=== PATIENT | male | born 1950 | race Caucasian/White ===

== ENCOUNTER 2016-04-16 17:45 | Emergency (ER) | payer OTHER ==
[~2016-04-16] VITALS: Ht 170.2 cm; Wt 89.4 kg
[~2016-04-16 17:45] MED LIST: ALBUTEROL0.09 MG/A1 INH; AZITHROMYCIN250 MG PO; BYSTOLIC10 MG PO; CRESTOR 10MG10 MG PO; LISINOPRIL40 MG PO; PREDNISONE50 MG PO; ZETIA10 MG PO
--- NOTE | 2016-04-16 18:58 | ED GI/GU/ABDOMINAL COMPLAINT ---
See Addendum History of Present Illness General Chief Complaint: General Adult Stated Complaint: FLU S/S X 1MONTH Source: patient, old records Exam Limitations: no limitations Vital Signs & Intake/Output Vital Signs & Intake/Output Vital Signs Date Time Temp Pulse Resp B/P Pulse O2 O2 Flow FiO2 Ox Delivery Rate 04/17 0852 98.6 82 20 181/90 99 / 0640 96.5 68 18 176/95 97 Room Air 03/ 0523 97.6 67 20 171/83 97 Room Air 03/ 0053 97.7 82 18 145/66 98 03/ 2351 98.3 64 18 120/111 99 Room Air / 2350 97.3 64 18 120/111 / 2249 70 18 172/88 98 Room Air / 2036 97.3 67 20 187/108 /06 2014 67 187/108 98 03/06 1940 Room Air / 1817 97.3 83 20 168/102 98 Room Air ED Intake and Output 04/17 0000 04/16 1200 Intake Total Output Total Balance Patient 197 lb Weight Triage Note: RECEIVED 66 YO MALE C/O MID ABDOMINAL PAIN X ONE MONTH WITH NAUSEA, VOMITING AND DIARRHEA. PT UNABLE TO TOLERATE ANY PO. PT WAS SEEN AT [facility] ED ONE WEEK AGO. Triage Nurses Notes Reviewed? yes Onset: Gradual ( ) Duration: week(s): (4), intermittent, waxing and waning Timing: recent history Quality/Severity: aching, cramping bloating Severity Numbers: 6 Location: periumbilical Radiation: no radiation Activities at Onset: none Prior Abdominal Problems: none No Modifying Factors: none Associated Symptoms: nausea HPI: 66-year-old male with history of hypertension high cholesterol presents complaining of mid abdominal pain sudden in onset and waxing and waning and intermittent in nature but he's had for the past 1 month associated with loose frequent stools and nausea. He denies any vomiting black or bloody stools. No history of similar symptoms in the past no sick contacts. Patient states he was seen at [facility] for the symptoms one week ago with no known cause identified. He denies sick history of abdominal surgeries in the past, no chest pain no shortness of breath no urinary symptoms. Has not attempted taking any medications for his symptoms. He is an active smoker and states that he did drink previously 2-3 beers a day prior to the symptoms which she states she has attempted cutting back on. His last drink was 3 days ago which time he had 3 beers. Patient states that he previously was on oxycodone for chronic pain however he states he was tapered off of this 3 months ago and has not been on any narcotics since. he Denies any other drug use no back pain the pain in his abdomen is described as cramping and bloating nonradiating. There are no modifying factors or associated symptoms otherwise. No recent antibiotic use (CRAIG MARROQUIN,GENIE) Allergies Coded Allergies: acetaminophen (From PERCOCET) (RASH 04/17/16) oxycodone (From PERCOCET) (RASH 04/17/16) Reconcile Medications Aspirin (Ecotrin*) 81 MG TABLET.DR 1 TAB PO DAILY HEART/BP (Reported) Dicyclomine Hydrochloride (Bentyl) 10 MG CAPSULE 1 CAP PO TID PRN SPASM Dicyclomine Hydrochloride (Bentyl) 10 MG CAPSULE 1 CAP PO TID PRN pain Escitalopram Oxalate 10 MG TABLET 1 TAB PO DAILY MENTAL HEALTH (Reported) Hydromorphone HCl (Dilaudid) 2 MG TABLET 1 TAB PO Q6P PRN PAIN Metoprolol Tartrate 50 MG TABLET 2 TAB PO QAM HEART/BP (Reported) Metoprolol Tartrate (Lopressor) 50 MG TABLET 1 TAB PO QPM HEART/BP (Reported) Nifedipine (Nifedipine ER) 30 MG TABLET.ER 1 TAB PO DAILY BP (Reported) Ondansetron (Zofran Odt) 4 MG TAB.RAPDIS 1 TAB PO Q6 PRN NAUSEA Ondansetron (Zofran Odt) 4 MG TAB.RAPDIS 1 TAB SL TID PRN nausea Rosuvastatin Calcium (Crestor) 40 MG TABLET 1 TAB PO DAILY CHOLESTEROL ( Reported) (JORGE SULLIVAN,ELMER) Past History Travel History Traveled to [place] past 21 day No Medical History Any Pertinent Medical History? 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 No (GENIE ESCOBAR) Review of Systems Review of Systems Constitutional: Reports: no symptoms. All Other Systems: Reviewed and Negative Comments Review of systems: See HPI, All other systems negative. Constitutional, no chills no fever, no malaise no weight loss HEENT: no sore throat no congestion, no ear pain Cardiovascular: No chest pain , no palpitation , Skin, no jaundice no rashes, no change in skin Respiratory: No dyspnea no cough no sputum no hemoptysis GI: No nausea no vomiting, diarrhea, : No dysuria No hematuria, no frequency, Muscle skeletal: No joint pain, no joint swelling, no back pain, no neck pain, Neurologic: No numbnessno headache Psych: No stress Heme/endocrine: No bruising no bleeding Immunology: No lymphadenopathy, (GENIE ESCOBAR) Physical Exam Physical Exam General Appearance: well developed/nourished, alert, awake Gastrointestinal: soft Comments: Well-developed well-nourished person in no acute distress HEENT: Normal EENT exam; PERRL, EOMI. HEAD is atraumatic. moist mucous membranes. Neck: Supple, normal range of motion Back: Nontender, no CVA tenderness. Full range of motion Cardiovascular: Regular rate and rhythms no murmurs rubs Respiratory: No respiratory distress. Patient speaking in full complete sentences. Breath sounds clear to auscultation bilaterally: NO W/R/R Abdomen: Soft, nontender nondistended, no appreciable organomegaly. Normal bowel sounds. No rebound/guarding, No appreciable enlargement of the abdominal aorta, No ascites. Extremity: No edema, full range of motion of extremities Neuro: Alert oriented x3, motor sensory normal, There were no obvious focal neurologic abnormalities. Skin: No appreciable rash on exposed skin, skin is warm and dry. Psych: Mood and affect is normal, memory and judgment is normal. Core Measures ACS in differential dx? No Severe Sepsis Present: No Septic Shock Present: No (GENIE ESCOBAR) Progress Differential Diagnosis: appendicitis, biliary colic, bowel obstruction, colon cancer, cholecystitis, gastritis, hepatitis, hernia, inflamm bowel dis, pancreatitis, peptic ulcer, PUD/GERD, perforated viscous, SBO, maligancy, etoh/ opiate Withdrawal Plan of Care: Orders Procedure Date/time Status Regular Diet 04/17 B Active Continuous Observation Monitor 04/16 2344 Active Add-on Test (ER Only) 04/16 232 Active URINE DRUG SCREEN FOR ER ONLY 04/17 2151 Complete URINALYSIS 04/17 2151 Complete ED CRISIS PSYCH CONSULT 04/16 2149 Active Add-on Test (ER Only) 04/16 1950 Active ETHANOL 04/16 1929 Complete LIPASE 04/16 1905 Complete COMPREHENSIVE METABOLIC PANEL 04/16 1905 Complete CBC WITHOUT DIFFERENTIAL 04/16 1905 Complete AMYLASE 04/16 1905 Complete Current Medications Sig/Harjit Start time Last Medication Dose Stop Time Status Admin Aspirin Buffered 81 MG DAILY 04/17 1000 UNVr (Ecotrin) Escitalopram Oxalate 10 MG DAILY 04/17 1000 UNVr (Lexapro) Metoprolol Tartrate 100 MG QAM 04/17 1000 UNVr (Lopressor) Laboratory Tests 04/16/162155: Urine Opiates Screen 2177.00 H, Methadone Screen 47, Barbiturate Screen < 60, Ur Phencyclidine Scrn < 6.00, Amphetamines Screen < 100, U Benzodiazepines Scrn 650 H, Urine Cocaine Screen < 50, Urine Cannabis Screen < 5.00, Urine Color YEL , Urine Clarity CLEAR, Urine pH 6.0, Ur Specific [place] <= 1.005, Urine Protein NEG, Urine Ketones NEG, Urine Nitrite NEG, Urine Bilirubin NEG, Urine Urobilinogen 0.2, Ur Leukocyte Esterase NEG, Ur Microscopic EXAM NOT REQUIRED, Urine Hemoglobin NEG, Urine Glucose NEG 04/16/161929: Anion Gap 13, Estimated GFR > 60, BUN/Creatinine Ratio 8.6, Glucose 104 H, Calcium 10.0, Total Bilirubin 0.8, AST 30, ALT 47, Alkaline Phosphatase 118, Total Protein 7.2, Albumin 4.2, Globulin 3.0, Albumin/Globulin Ratio 1.4, Amylase 32, Lipase 149, CBC w Diff NO MAN DIFF REQ, RBC 5.10, MCV 83.6, MCH 28.1 , RDW 14.8 H, MPV 9.4, Gran % 70.9, Lymphocytes % 17.7 L, Monocytes % 9.2, Eosinophils % 2.0, Basophils % 0.2, Absolute Granulocytes 6.9 H, Absolute Lymphocytes 1.7, Absolute Monocytes 0.9 H, Absolute Eosinophils 0.2, Absolute Basophils 0, PUBS MCHC 33.7, Serum Alcohol < 10.0 Labs ordered old records reviewed patient medicated with IV fluids Zofran 4 morphine for CAT scan ordered as discussed with Dr. Gillespie 04/16/2016 8:31:04 PM discussed with patient at length all of his lab results, pending CAT scan he reports pain is still present oral 30 IV fluids ordered Case discussed with and signed out to LOPEZ RAMSEY PENDING CT (EGNIE ESCOBAR) 214: sign out received by Genie Quiñones PA-C. discussed results of labs and CT scan with patient. Patient complaining of mid abdominal pain and 4 episodes of diarrhea daily for 1 month. Reports that he drinks beer almost daily, last drink several days ago, never had severe withdrawal from alcohol, even when hospitalized for several days for other conditions. Increasing depression due to his chronic pain, and symptoms. At times thoughts of not wanting to live due to his chronic pain and the symptoms that he has been feeling for the past month. No suicidal ideation currently. Offerred patient emergency department crisis consultation. Patient agreeable to being evaluated by graduate internship. 04/16/16 2300: Signed out to Dr Gillespie. (OLINDA TABARES) 7:10 AM Patient signed out to me by Dr. Gillespie, pending crisis disposition. 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 04/17/2016 9:11:[address] Betancourt was contacted by Hannah from our case management department. He will help the patient follow-up with pain management. Patient also given a list of outpatient services to follow up with. Currently not suicidal. Patient agrees with the plan for discharge. (JORGE SULLIVAN,ELMER) Diagnostic Imaging: Viewed by Me: CT Scan. Discussed w/RAD: CT Scan. Initial ED EKG: none Hand-Off Endorsed To: OLINDA TABARES Endorsed Time: 2100 Pending: CT (GENIE ESCOBAR) Diagnostic Imaging: Viewed by Me: CT Scan. Discussed w/RAD: CT Scan. Radiology Impression: PATIENT: KAYLENE WILCOX PRESENT AGE: 66 PATIENT ACCOUNT NO: [id number] : 51 LOCATION: [facility] ORDERING PHYSICIAN: GENIE MARROQUIN SERVICE DATE: 04/16/16 EXAM TYPE: CAT - CT ABD & PELVIS W IV CONTRAST EXAMINATION: CT ABDOMEN AND PELVIS WITH CONTRAST CLINICAL INFORMATION: Diarrhea. Mid abdominal pain. COMPARISON: None. TECHNIQUE: Multidetector volumetric imaging was performed of the abdomen and pelvis before and after the IV administration of 94 mL of Optiray 320 intravenous contrast. Sagittal and coronal reformatted images were obtained on the technologist's workstation. DLP: 546 mGy-cm FINDINGS: LUNG BASES: The visualized lung bases are unremarkable. LIVER, GALLBLADDER, AND BILIARY TREE: The liver is normal in size, shape, and attenuation. No focal hepatic lesion or biliary ductal dilatation is present. The gallbladder is unremarkable with no evidence of radiopaque gallstones, gallbladder wall thickening, or obvious pericholecystic inflammatory changes. PANCREAS: Unremarkable. SPLEEN: Unremarkable. ADRENAL GLANDS: Unremarkable. KIDNEYS AND URETERS: Evaluation of the bilateral kidneys and renal collecting systems is notable for multiple bilateral simple renal cortical cysts , visualized measuring up to 4.5 cm along the midpole of the right kidney. There are several small simple renal cortical cysts along the lateral cortex of the upper, mid and lower poles of the left kidney. There is nonspecific mild left- sided perinephric stranding. No renal or ureteral stones are identified and there is no hydroureteronephrosis of either kidney or renal collecting system. BLADDER: Unremarkable. GASTROINTESTINAL TRACT: Evaluation of the gastrointestinal system is notable for mild rectal wall thickening. This finding is indeterminate and may be secondary to underlying colonic distention although a superimposed mild infectious or inflammatory colitis or perhaps malignancy cannot be entirely excluded abdominal and pelvic bowel loops are normal in caliber, without findings indicative of obstruction or ileus. Nonvisualization of the appendix. No acute inflammatory changes within the right lower quadrant of the abdomen. Scattered colonic diverticulosis, notably involving the sigmoid colon, without secondary signs of acute diverticulitis. ABDOMINAL WALL: Small fat-containing umbilical hernia. LYMPH NODES: No significant abdominal or pelvic adenopathy. Subcentimeter lymph nodes in the region of the patrick hepatis. VASCULAR: Scattered atherosclerosis of the abdominal aorta and its branching vessels, without aneurysmal dilatation. PELVIC VISCERA: Unremarkable. OSSEOUS STRUCTURES: No acute osseous abnormality. Mechanical hardware related to posterior lumbar fusion and decompression from L3 through S1. Moderate to severe multilevel degenerative changes of the lumbar spine. Lumbar spine alignment appears grossly maintained. No visible destructive osseous lesions. IMPRESSION: 1. No acute findings within the abdomen or pelvis to explain patient symptomatology. Scattered colonic diverticulosis, notably involving the descending and rectosigmoid colon, without secondary signs of acute diverticulitis. 2. Of note, there is mild rectal wall thickening. This finding is nonspecific and may be secondary to colonic underdistention although a superimposed infectious, inflammatory or neoplastic process cannot be entirely excluded. Consider correlation with flexible sigmoidoscopy or colonoscopy. DICTATED BY: ANA HENRY MD DATE/TIME DICTATED:04/16/162121 PACKAGING ASSEMBLER:AVINASH DATE/TIME TRANSCRIBED:04/16/162121 CONFIDENTIAL, DO NOT COPY WITHOUT APPROPRIATE AUTHORIZATION. <Electronically signed in Other Vendor System> SIGNED BY: ANA HENRY MD 04/16/162137 (OLINDA TABARES) Hand-Off Endorsed To: ELMER PATEL MD Endorsed Time: 07 Pending: consult (CRISIS) (RIKKI SULLIVAN,SHERINE Martinez) Departure Departure Condition: Stable Additional Instructions: Bentyl as directed, Zofran for nausea bland diet clear liquids, follow-up with her primary care physician tomorrow as well as garnett mechanic Dr. sharpe. return at anytime sooner with any concerns Departure Forms: Customer Survey General Discharge Information (GENIE ESCOBAR) Departure Clinical Impression Primary Impression: Abdominal pain Secondary Impressions: Suicidal ideations (RIKKI SULLIVAN,SHERINE Martinez) Departure Time of Disposition: 911 Disposition: HOME OR SELF CARE Referrals: MINA SULLIVAN,KAVITHA JIMENEZ MD,HARDEEP Crooks (PCP/Family) Prescriptions: Current Visit Scripts Dicyclomine Hydrochloride (Bentyl) 1 CAP PO TID PRN SPASM #20 CAP Ondansetron (Zofran Odt) 1 TAB PO Q6 PRN NAUSEA #10 TAB Ondansetron (Zofran Odt) 1 TAB SL TID PRN nausea #10 TAB Dicyclomine Hydrochloride (Bentyl) 1 CAP PO TID PRN pain #15 CAP PA/WOOD SHINGLE ROOFER Co-Sign Statement Statement: ED Attending supervision documentation- [X] I saw and evaluated the patient. I have also reviewed all the pertinent lab results and diagnostic results. I agree with the findings and the plan of care as documented in the PA's/WOOD SHINGLE ROOFER's documentation. [X] I have reviewed the ED Record and agree with the PA's/WOOD SHINGLE ROOFER's documentation. [] Additions or exceptions (if any) to the PAs/WOOD SHINGLE ROOFER's note and plan are summarized below: [] (JORGE SULLIVAN,ELMER)
[2016-04-16] MEDS ORDERED: METOPROLOL TART50 M1 PO (19:12)
[2016-04-16] MEDS ORDERED: ESCITALOPRAM OX10 MG PO (19:12)
[2016-04-16] MEDS ORDERED: NIFEDIPINE ER30 M1 PO (19:13)
[2016-04-16] MEDS ORDERED: LOPRESSOR50 M1 PO (19:13)
[2016-04-16] MEDS ORDERED: ASPIRIN EC81 M1 PO (19:14)
[2016-04-16] MEDS ORDERED: CRESTOR40 M2 PO (19:14)
[2016-04-16] MEDS ORDERED: ZOFRAN ODT4 M1 SL (19:44)
[2016-04-16] MEDS ORDERED: BENTYL10 M1 PO (19:44)
[2016-04-16 19:45] LABS: ABSOLUTE BASOPHIL COUNT 0 /CUMM (0.0-0.2); ABSOLUTE EOSINOPHIL COUNT 0.2 /CUMM (0.0-0.7); ABSOLUTE GRANULOCYTE CT 6.9 /CUMM (1.4-6.5); ABSOLUTE LYMPH COUNT 1.7 /CUMM (1.2-3.4); ABSOLUTE MONOCYTE COUNT 0.9 /CUMM (0.10-0.60); BASOPHIL % 0.2 % (0.0-2.0); GRANULOCYTE % 70.9 % (42.2-75.2); HEMATOCRIT 42.6 % (42-52); MEAN CORPUSCULAR HGB 28.1 PG (27.0-31.0); MEAN CORPUSCULAR HGB CONC 33.7 G/DL (33.0-37.0); MEAN CORPUSCULAR VOLUME 83.6 FL (80.0-94.0); MEAN PLATELET VOLUME 9.4 FL (7.4-10.4); PLATELET COUNT 260 /CUMM (130-400); RBC DISTRIBUTION WIDTH 14.8 % (11.5-14.5); WHITE BLOOD CELL COUNT 9.8 /CUMM (4.8-10.8)
--- NOTE | 2016-04-16 21:38 | CT SCAN REPORT ---
EXAMINATION: CT ABDOMEN AND PELVIS WITH CONTRAST CLINICAL INFORMATION: Diarrhea. Mid abdominal pain. COMPARISON: None. TECHNIQUE: Multidetector volumetric imaging was performed of the abdomen and pelvis before and after the IV administration of 94 mL of Optiray 320 intravenous contrast. Sagittal and coronal reformatted images were obtained on the technologist's workstation. DLP: 546 mGy-cm FINDINGS: LUNG BASES: The visualized lung bases are unremarkable. LIVER, GALLBLADDER, AND BILIARY TREE: The liver is normal in size, shape, and attenuation. No focal hepatic lesion or biliary ductal dilatation is present. The gallbladder is unremarkable with no evidence of radiopaque gallstones, gallbladder wall thickening, or obvious pericholecystic inflammatory changes. PANCREAS: Unremarkable. SPLEEN: Unremarkable. ADRENAL GLANDS: Unremarkable. KIDNEYS AND URETERS: Evaluation of the bilateral kidneys and renal collecting systems is notable for multiple bilateral simple renal cortical cysts, visualized measuring up to 4.5 cm along the midpole of the right kidney. There are several small simple renal cortical cysts along the lateral cortex of the upper, mid and lower poles of the left kidney. There is nonspecific mild left-sided perinephric stranding. No renal or ureteral stones are identified and there is no hydroureteronephrosis of either kidney or renal collecting system. BLADDER: Unremarkable. GASTROINTESTINAL TRACT: Evaluation of the gastrointestinal system is notable for mild rectal wall thickening. This finding is indeterminate and may be secondary to underlying colonic distention although a superimposed mild infectious or inflammatory colitis or perhaps malignancy cannot be entirely excluded abdominal and pelvic bowel loops are normal in caliber, without findings indicative of obstruction or ileus. Nonvisualization of the appendix. No acute inflammatory changes within the right lower quadrant of the abdomen. Scattered colonic diverticulosis, notably involving the sigmoid colon, without secondary signs of acute diverticulitis. ABDOMINAL WALL: Small fat-containing umbilical hernia. LYMPH NODES: No significant abdominal or pelvic adenopathy. Subcentimeter lymph nodes in the region of the patrick hepatis. VASCULAR: Scattered atherosclerosis of the abdominal aorta and its branching vessels, without aneurysmal dilatation. PELVIC VISCERA: Unremarkable. OSSEOUS STRUCTURES: No acute osseous abnormality. Mechanical hardware related to posterior lumbar fusion and decompression from L3 through S1. Moderate to severe multilevel degenerative changes of the lumbar spine. Lumbar spine alignment appears grossly maintained. No visible destructive osseous lesions. IMPRESSION: 1. No acute findings within the abdomen or pelvis to explain patient symptomatology. Scattered colonic diverticulosis, notably involving the descending and rectosigmoid colon, without secondary signs of acute diverticulitis. 2. Of note, there is mild rectal wall thickening. This finding is nonspecific and may be secondary to colonic underdistention although a superimposed infectious, inflammatory or neoplastic process cannot be entirely excluded. Consider correlation with flexible sigmoidoscopy or colonoscopy.
--- NOTE | 2016-04-17 08:19 | ED PSYCH CRISIS CONSULTATION ---
Crisis Consult Basic Assessment Date of Consult: 04/17/16 Responsible Person/Accompanied By: self Insurance Authorization: Insurance #1: Insurance name: [facility] MEDIC[facility] Phone number: Policy number: [id number] Group number: [id number] Authorization number: ED Provider: Patient's ED Provider: OLINDA TABARES Primary Care Physician: Patient's PCP: HARDEEP JIMENEZ MD PCP's Current Psychiatrist: none Chief Complaint: General Adult Patient's Quote: "I can't live like this." Present Illness: Pt is a 66yo male who presents to the ED requesting help for his chronic pain. Pt was give opiate pain med and benzos while in the ED. UDS is consistent with this. Pt expressed passive SI in the context of his pain to the ED PA, but denied active SI. As a result crisis was asked to evaluate. Pt reports that he has had surgery on 3 disks in his spine and also his knee. Pt explains that he was on methadone by his PCP, but is was discontinued. Pt expresses that he feels he can't live with the severity of his pain and requests help. Pt reports that his pain is so bead that he gets sick to his stomach and can't sleep. Pt denies any hx of depression or mental health tx, but does admits he feels depressed as a result of his pain. Crisis spoke to pt's son Quinten Marks [phone]. pt lives with him. Son verifies that pt has no prior psych hx and has never expressed any SI before. He states that if pt's pain is addressed, then he probably would not feel so hopeless. This clinician Spoke to pt's PCP Dr. Hardeep Jimenez who confirmed that pt has valid pain concerns and should follow-up at a pain management clinic. He informed that he will refer pt to pain management. Pt was informed of this and pt is agreeable to meet with his PCP to be referred for pain management. Pt states he is comfortable with this plan and denies any current SI. Pt agrees to got to the ED if he has any suicidal thoughts, unbearable pain, or feels unsafe. Pt was also offered a referral for out pt tx for depression, but he declined. Pt was provided with a list of resources if he changes his mind. Case reviewed with Dr. Hearn of psychiatry and he approved dispo plan. Patient's Address: [address] [place] [address] Other Phone Number: Who Do You Live With? Son Family/Informants Interviewed: son Allergies - Coded Allergies: acetaminophen (From PERCOCET) (RASH 04/17/16) oxycodone (From PERCOCET) (RASH 04/17/16) Current Medications - Scheduled Medications Aspirin (Ecotrin*) 81 MG TABLET.DR 1 TAB PO DAILY HEART/BP (Reported) Entered as Reported by DONALDO REDDY on 04/16/161913 Escitalopram Oxalate 10 MG TABLET 1 TAB PO DAILY MENTAL HEALTH #30 (Reported) Entered as Reported by DONALDO REDDY on 04/16/161911 Metoprolol Tartrate 50 MG TABLET 2 TAB PO QAM HEART/BP #90 (Reported) Entered as Reported by DONALDO REDDY on 04/16/161911 Metoprolol Tartrate (Lopressor) 50 MG TABLET 1 TAB PO QPM HEART/BP (Reported) Entered as Reported by DONALDO REDDY on 04/16/161912 Nifedipine (Nifedipine ER) 30 MG TABLET.ER 1 TAB PO DAILY BP #30 (Reported) Entered as Reported by DONALDO REDDY on 04/16/161912 Rosuvastatin Calcium (Crestor) 40 MG TABLET 1 TAB PO DAILY CHOLESTEROL #30 ( Reported) Entered as Reported by DONALDO REDDY on 04/16/161913 Scheduled PRN Medications Dicyclomine Hydrochloride (Bentyl) 10 MG CAPSULE 1 CAP PO TID PRN pain #15 CAP Prescribed by GENIE ESCOBAR on 04/16/16 Ondansetron (Zofran Odt) 4 MG TAB.RAPDIS 1 TAB SL TID PRN nausea #10 TAB Prescribed by GENIE ESCOBAR on 04/16/16 Laboratory Results: Laboratory Tests 04/16/16 2156: Urine Opiates Screen 2177.00 H, Methadone Screen 47, Barbiturate Screen < 60, Ur Phencyclidine Scrn < 6.00, Amphetamines Screen < 100, U Benzodiazepines Scrn 650 H, Urine Cocaine Screen < 50, Urine Cannabis Screen < 5.00, Urine Color YEL , Urine Clarity CLEAR, Urine pH 6.0, Ur Specific [place] <= 1.005, Urine Protein NEG, Urine Ketones NEG, Urine Nitrite NEG, Urine Bilirubin NEG, Urine Urobilinogen 0.2, Ur Leukocyte Esterase NEG, Ur Microscopic EXAM NOT REQUIRED, Urine Hemoglobin NEG, Urine Glucose NEG 04/16/16 1930: Anion Gap 13, Estimated GFR > 60, BUN/Creatinine Ratio 8.6, Glucose 104 H, Calcium 10.0, Total Bilirubin 0.8, AST 30, ALT 47, Alkaline Phosphatase 118, Total Protein 7.2, Albumin 4.2, Globulin 3.0, Albumin/Globulin Ratio 1.4, Amylase 32, Lipase 149, CBC w Diff NO MAN DIFF REQ, RBC 5.10, MCV 83.6, MCH 28.1 , RDW 14.8 H, MPV 9.4, Gran % 70.9, Lymphocytes % 17.7 L, Monocytes % 9.2, Eosinophils % 2.0, Basophils % 0.2, Absolute Granulocytes 6.9 H, Absolute Lymphocytes 1.7, Absolute Monocytes 0.9 H, Absolute Eosinophils 0.2, Absolute Basophils 0, PUBS MCHC 33.7, Serum Alcohol < 10.0 Past History Past Medical History Neurological: NONE EENT: NONE Cardiovascular: hypertension, hyperlipidemia Respiratory: NONE Gastrointestinal: NONE Hepatic: NONE Renal: CYST ON KIDNEYS Musculoskeletal: NONE Psychiatric: NONE Endocrine: NONE Blood Disorders: NONE Cancer(s): 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 Past Surgical History Surgical History: none Psychosocial History Strengths/Capabilities: reaches out for help, wants to feel better, supportive son Physical Limitations (Interventions): none reported Psychiatric Treatment History Psych Treatment Psychiatric Treatment No Inpatient Treatment No Outpatient Treatment No Diagnosis by History: none Substance Use/Abuse History Drug Use/Abuse Substances Used/Abused Yes Substance Used/Abused Alcohol First Use 22 Last Used yesterday How much used/taken 3-6 beers How often daily For how long since age 22 Route of use po Substance Abuse Treatment Substance Abuse Treatment Past Substance Abuse [place] No Inpatient Treatment No Outpatient Treatment No Current Mental Status Mental Status Orientation: Person, Place, Situation Affect: Sad Speech: WNL Neuro-vegetative: Appetite Decreased, Sleep Disturbance Appearance Appearance- Dress/Hygiene: unkempt, good eye contact Behaviors Thought Process: WNL Thought Content: WNL Memory: WNL Insight: WNL SI/HI Risk Assessment Past Suicidal Ideation/Attempts No Current Suicidal Ideation/Att No Past Homicidal Ideation/Att: No Current Homicidal Ideation/Attempts No Degree of Intent: None Risk Factors: age (under 24/over 65), chronic/serious med cond., substance abuse , male, limited support Lethality Ratin (mild) PTSD Checklist PTSD Done? 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 Current GAF: 40 Comments: Chronic pain in knee and back, s/p multiple surgeries Departure Disposition Psych Medical Clearance Date: 04/17/16 Medically Cleared at: 0800 Time Started: 0800 Time Ended: 844 Psychiatrist Consulted: Michelet Hearn MD Date Disposition Established: 04/17/16 Time Disposition Established: 844 Plan for Disposition - Modality: Follow-up with PCP for pain mgmt referral Facility: Patient to Arrange Rationale for Disposition: Pt agreeable to follow-up with PCP and pain mgmt, pt denies active SI and agrees to return to ED if suicidal thoughts occur Referrals BARBARA SULLIVAN,HARDEEP Crooks (PCP/Family)
[2016-04-17 08:52] VITALS: BP 181/90
[2016-04-17] MEDS ORDERED: ZOFRAN ODT4 M1 PO (09:45)
[2016-04-17] MEDS ORDERED: BENTYL10 M1 PO (09:45)
[2016-04-17] MEDS ORDERED: DILAUDID2 M1 PO (21:48)
== END 2016-04-17 09:52 ==
LOC: ERH 17:45
PROVIDERS: Physician Assistant Medical
DX: R10.33 Periumbilical pain (principal); R45.851 Suicidal ideations; Z72.0 Tobacco use; I10 Essential (primary) hypertension; Z79.899 Other long term (current) drug therapy
CPT/HCPCS: 74177; 80307; 81003; 96374; 96375; G0463; G0480; J1885; J2405; J2550

== ENCOUNTER 2016-04-17 20:06 | Emergency (ER) | payer OTHER ==
[~2016-04-17] VITALS: Ht 170.2 cm; Wt 90.7 kg
[~2016-04-17 20:06] MED LIST changes: +ASPIRIN EC81 M1 PO; +BENTYL10 M1 PO; +CRESTOR40 M2 PO; +ESCITALOPRAM OX10 MG PO; +LOPRESSOR50 M1 PO; +METOPROLOL TART50 M1 PO; +NIFEDIPINE ER30 M1 PO; +ZOFRAN ODT4 M1 PO; +ZOFRAN ODT4 M1 SL
[2016-04-17 20:10] VITALS: BP 158/98
--- NOTE | 2016-04-17 20:24 | ED GENERAL ADULT ---
History of Present Illness General Chief Complaint: Psychiatric Related Complaint Stated Complaint: PT IS POSTIVE SI Source: patient, old records Exam Limitations: no limitations Vital Signs & Intake/Output Vital Signs & Intake/Output Vital Signs Date Time Temp Pulse Resp B/P Pulse O2 O2 Flow FiO2 Ox Delivery Rate 04/17 2009 97.2 91 20 158/98 98 Room Air Allergies Coded Allergies: acetaminophen (From PERCOCET) (RASH 04/17/16) oxycodone (From PERCOCET) (RASH 04/17/16) Reconcile Medications Aspirin (Ecotrin*) 81 MG TABLET.DR 1 TAB PO DAILY HEART/BP (Reported) Dicyclomine Hydrochloride (Bentyl) 10 MG CAPSULE 1 CAP PO TID PRN SPASM Dicyclomine Hydrochloride (Bentyl) 10 MG CAPSULE 1 CAP PO TID PRN pain Escitalopram Oxalate 10 MG TABLET 1 TAB PO DAILY MENTAL HEALTH (Reported) Hydromorphone HCl (Dilaudid) 2 MG TABLET 1 TAB PO Q6P PRN PAIN Metoprolol Tartrate 50 MG TABLET 2 TAB PO QAM HEART/BP (Reported) Metoprolol Tartrate (Lopressor) 50 MG TABLET 1 TAB PO QPM HEART/BP (Reported) Nifedipine (Nifedipine ER) 30 MG TABLET.ER 1 TAB PO DAILY BP (Reported) Ondansetron (Zofran Odt) 4 MG TAB.RAPDIS 1 TAB PO Q6 PRN NAUSEA Ondansetron (Zofran Odt) 4 MG TAB.RAPDIS 1 TAB SL TID PRN nausea Rosuvastatin Calcium (Crestor) 40 MG TABLET 1 TAB PO DAILY CHOLESTEROL ( Reported) Triage Note: PT TO ED FOR +SI THOUGHTS "I WOULD STAB MYSELF" DNEIES HI. DENIES ETOH, DENIES DRUGS. WAS SEEN HERE YESTERDAY FOR SAME. HAS HAD BODY ACHES FOR MONTHS "I CAN'T TAKE IT ANY MORE" "THEY CAN'T FIND ANYTHING WRONG" Triage Nurses Notes Reviewed? yes HPI: Patient was on chronic pain medication but then his doctor stopped his prescriptions abruptly. This occurred over one month ago. She continues to have diffuse body aches as well as diarrhea. [facility] and then was seen here yesterday. Patient then stated that he wanted to drive his car into a tree so he was held overnight and had a crisis evaluation this morning. Patient was cleared for discharge. Patient called a pain clinic today to get in to be seen but his appointment is not for 3 months. Patient represents to the emergency room saying that he cannot live like this anymore and he wishes he would just . Patient has no plan. Patient denies any homicidal ideations. The body aches are diffuse and there are 10 out of 10. They're achy in origin. The aches are only received was given pain medication in the emergency department yesterday evening. There are no aggravating factors. Past History Travel History Traveled to [place] past 21 day No Medical History Any Pertinent Medical History? 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 No Review of Systems Review of Systems Constitutional: Reports: no symptoms. EENTM: Reports: no symptoms. Respiratory: Reports: no symptoms. Cardiovascular: Reports: no symptoms. GI: Reports: see HPI, diarrhea. Genitourinary: Reports: no symptoms. Musculoskeletal: Reports: see HPI, back pain, muscle pain. Skin: Reports: no symptoms. Neurological/Psychological: Reports: see HPI, depressed. Hematologic/Endocrine: Reports: no symptoms. Immunologic/Allergic: Reports: no symptoms. All Other Systems: Reviewed and Negative Physical Exam Physical Exam General Appearance: well developed/nourished, alert, awake, anxious, moderate distress Head: atraumatic, normal appearance Eyes: Bilateral: PERRL, EOMI. Ears, Nose, Throat: normal pharynx, normal ENT inspection Neck: normal inspection, supple, full range of motion Respiratory: normal breath sounds, chest non-tender, no respiratory distress, lungs clear Cardiovascular: regular rate/rhythm, normal peripheral pulses Gastrointestinal: normal bowel sounds, soft, non-tender Back: normal inspection Extremities: normal inspection, normal capillary refill, normal range of motion, no edema Neurologic/Psych: no motor/sensory deficits, awake, alert, oriented x 3, normal gait, normal mood/affect Skin: intact, normal color, warm/dry Lymphatic: no anterior cervical jakob Core Measures ACS in differential dx? No CVA/TIA Diagnosis: No Severe Sepsis Present: No Septic Shock Present: No Progress Differential Diagnoses I considered the following diagnoses in my evaluation of the patient: [PAIN MED WITHDRAWL, DEPRESSION] Plan of Care: Orders Procedure Date/time Status Continuous Observation Monitor 04/18 2035 Active ED CRISIS PSYCH CONSULT 04/18 2035 Active URINE DRUG SCREEN FOR ER ONLY 04/17 2017 Complete ETHANOL 04/17 2017 Complete COMPREHENSIVE METABOLIC PANEL 04/17 2017 Complete CBC WITHOUT DIFFERENTIAL 04/17 2017 Complete Laboratory Tests 04/17/162022: Urine Opiates Screen 2313.00 H, Methadone Screen 92, Barbiturate Screen < 60, Ur Phencyclidine Scrn < 6.00, Amphetamines Screen 169, U Benzodiazepines Scrn > 800 H, Urine Cocaine Screen < 50, Urine Cannabis Screen < 5.00 04/17/162018: Anion Gap 13, Estimated GFR > 60, BUN/Creatinine Ratio 21.7, Glucose 105 H, Calcium 9.6, Total Bilirubin 0.5, AST 24, ALT 47, Alkaline Phosphatase 117, Total Protein 6.8, Albumin 4.0, Globulin 2.8, Albumin/Globulin Ratio 1.4, CBC w Diff NO MAN DIFF REQ, RBC 4.97, MCV 84.3, MCH 28.3, RDW 15.3 H, MPV 9.2, Gran % 62.4, Lymphocytes % 22.8, Monocytes % 9.8 H, Eosinophils % 3.4, Basophils % 1.6 , Absolute Granulocytes 5.3, Absolute Lymphocytes 1.9, Absolute Monocytes 0.8 H , Absolute Eosinophils 0.3, Absolute Basophils 0.1, PUBS MCHC 33.5, Serum Alcohol < 10.0 Initial ED EKG: none Comments: Patient has been seen and evaluated by hand outside cutter. Patient is stable for discharge. Departure Departure Disposition: HOME OR SELF CARE Condition: Stable Clinical Impression Primary Impression: Medication refill Secondary Impressions: Depression, Narcotic withdrawal Referrals: BARBARA SULLIVAN,HARDEEP Crooks (PCP/Family) Additional Instructions: FOLLOW UP WITH PAIN MANAGEMENT Departure Forms: Customer Survey General Discharge Information Prescriptions: Current Visit Scripts Hydromorphone HCl (Dilaudid) 1 TAB PO Q6P PRN PAIN #30 TAB Critical Care Note Critical Care Note Critical Care Time: non-applicable
[2016-04-17 20:32] LABS: ABSOLUTE BASOPHIL COUNT 0.1 /CUMM (0.0-0.2); ABSOLUTE EOSINOPHIL COUNT 0.3 /CUMM (0.0-0.7); ABSOLUTE GRANULOCYTE CT 5.3 /CUMM (1.4-6.5); ABSOLUTE LYMPH COUNT 1.9 /CUMM (1.2-3.4); ABSOLUTE MONOCYTE COUNT 0.8 /CUMM (0.10-0.60); BASOPHIL % 1.6 % (0.0-2.0); EOSINOPHIL % 3.4 % (0-5); GRANULOCYTE % 62.4 % (42.2-75.2); HEMATOCRIT 41.9 % (42-52); MEAN CORPUSCULAR HGB 28.3 PG (27.0-31.0); MEAN CORPUSCULAR HGB CONC 33.5 G/DL (33.0-37.0); MEAN CORPUSCULAR VOLUME 84.3 FL (80.0-94.0); MEAN PLATELET VOLUME 9.2 FL (7.4-10.4); PLATELET COUNT 246 /CUMM (130-400); RBC DISTRIBUTION WIDTH 15.3 % (11.5-14.5); RED BLOOD CELL CT 4.97 /CUMM (4.70-6.10); WHITE BLOOD CELL COUNT 8.4 /CUMM (4.8-10.8)
--- NOTE | 2016-04-17 21:44 | ED PSYCH CRISIS CONSULTATION ---
Crisis Consult Basic Assessment Date of Consult: 04/17/16 Responsible Person/Accompanied By: self Insurance Authorization: Insurance #1: Insurance name: [facility] MEDIC[facility] PLAN Phone number: Policy number: [id number] Group number: [id number] Authorization number: ED Provider: Patient's ED Provider: RIKKI SULLIVAN,SHERINE Martinez Primary Care Physician: Patient's PCP: HARDEEP JIMENEZ MD PCP's Current Psychiatrist: none Chief Complaint: Psychiatric Related Complaint Patient's Quote: I dont feel good- this is going on for5 weeks. Present Illness: Pt is a 66 yo male presenting to [place] ED this evening with report of passive SI related to body aches and pains. Pt reports contant body aches and diarhea since PCP abrupty stopped prescribing his pain medication 4 weeks ago. Pt was previously evaluated this morning in [place] ED with plan to follow up with his PCP Hardeep Chang and get a referral to pain management clinic. Pt reports the wait for an appt is 3-4 weeks and he can't take the pain for that long. Pt reports a hx of multiple back and knee surgery and was prescribed pain medication for 16-17 yrs prior to their cessation. PT has no prior mental health history. Pt reports if he can receive pain medication he would be better. he reports he was medicated last night and this morning with dilaudid and he was able to sleep well last night and had a good appetite this morning. Pt presented as alert and oriented X3. Pt was easily engaged and cooperative. Patient's Address: [address] [place] [address] Other Phone Number: Who Do You Live With? Son Family/Informants Interviewed: Pt son Quinten Yin provided transportation home for pt and will have prescription filled at [facility]. Allergies - Coded Allergies: acetaminophen (From PERCOCET) (RASH 04/17/16) oxycodone (From PERCOCET) (RASH 04/17/16) Current Medications - Scheduled Medications Aspirin (Ecotrin*) 81 MG TABLET. 1 TAB PO DAILY HEART/BP (Reported) Entered as Reported by DONALDO REDDY on 04/16/161913 Escitalopram Oxalate 10 MG TABLET 1 TAB PO DAILY MENTAL HEALTH #30 (Reported) Entered as Reported by DONALDO REDDY on 04/16/161911 Metoprolol Tartrate 50 MG TABLET 2 TAB PO QAM HEART/BP #90 (Reported) Entered as Reported by DONALDO REDDY on 04/16/161911 Metoprolol Tartrate (Lopressor) 50 MG TABLET 1 TAB PO QPM HEART/BP (Reported) Entered as Reported by DONALDO REDDY on 04/16/161912 Nifedipine (Nifedipine ER) 30 MG TABLET.ER 1 TAB PO DAILY BP #30 (Reported) Entered as Reported by DONALDO REDDY on 04/16/161912 Rosuvastatin Calcium (Crestor) 40 MG TABLET 1 TAB PO DAILY CHOLESTEROL #30 ( Reported) Entered as Reported by DONALDO REDDY on 04/16/161913 Scheduled PRN Medications Dicyclomine Hydrochloride (Bentyl) 10 MG CAPSULE 1 CAP PO TID PRN SPASM #20 CAP Prescribed by ELMER PATEL MD on 04/17/16 Dicyclomine Hydrochloride (Bentyl) 10 MG CAPSULE 1 CAP PO TID PRN pain #15 CAP Prescribed by GENIE ESCOBAR on 04/16/16 Hydromorphone HCl (Dilaudid) 2 MG TABLET 1 TAB PO Q6P PRN PAIN #30 TAB Prescribed by SHERINE BRANDT MD on 04/17/16 Ondansetron (Zofran Odt) 4 MG TAB.RAPDIS 1 TAB PO Q6 PRN NAUSEA #10 TAB Prescribed by ELMER PATEL MD on 04/17/16 Ondansetron (Zofran Odt) 4 MG TAB.RAPDIS 1 TAB SL TID PRN nausea #10 TAB Prescribed by GENIE ESCOBAR on 04/16/16 Laboratory Results: Laboratory Tests 04/17/162022: Urine Opiates Screen 2313.00 H, Methadone Screen 92, Barbiturate Screen < 60, Ur Phencyclidine Scrn < 6.00, Amphetamines Screen 169, U Benzodiazepines Scrn > 800 H, Urine Cocaine Screen < 50, Urine Cannabis Screen < 5.00 04/17/16 2019: Anion Gap 13, Estimated GFR > 60, BUN/Creatinine Ratio 21.7, Glucose 105 H, Calcium 9.6, Total Bilirubin 0.5, AST 24, ALT 47, Alkaline Phosphatase 117, Total Protein 6.8, Albumin 4.0, Globulin 2.8, Albumin/Globulin Ratio 1.4, CBC w Diff NO MAN DIFF REQ, RBC 4.97, MCV 84.3, MCH 28.3, RDW 15.3 H, MPV 9.2, Gran % 62.4, Lymphocytes % 22.8, Monocytes % 9.8 H, Eosinophils % 3.4, Basophils % 1.6 , Absolute Granulocytes 5.3, Absolute Lymphocytes 1.9, Absolute Monocytes 0.8 H , Absolute Eosinophils 0.3, Absolute Basophils 0.1, PUBS MCHC 33.5, Serum Alcohol < 10.0 Past History Past Medical History Neurological: NONE EENT: NONE Cardiovascular: hypertension, hyperlipidemia Respiratory: NONE Gastrointestinal: NONE Hepatic: NONE Renal: CYST ON KIDNEYS Musculoskeletal: NONE Psychiatric: +SI Endocrine: NONE Blood Disorders: NONE 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 Past Surgical History Surgical History: none, non-contributory Psychosocial History Strengths/Capabilities: reaches out for help, wants to feel better, supportive son Physical Limitations (Interventions): none reported Psychiatric Treatment History Psych Treatment Psychiatric Treatment No Inpatient Treatment No Outpatient Treatment No Diagnosis by History: none Substance Use/Abuse History Drug Use/Abuse Substances Used/Abused Yes Substance Used/Abused Alcohol Last Used 3 wks ago How much used/taken 3-4 beers How often daily Substance Abuse Treatment Substance Abuse Treatment Past Substance Abuse [place] No Inpatient Treatment No Outpatient Treatment No Current Mental Status Mental Status Orientation: Person, Place, Situation Affect: Hopeless Speech: WNL Neuro-vegetative: Appetite Decreased, Energy Decreased, Sleep Disturbance Appearance Appearance- Dress/Hygiene: hospital scrubs. Laying in bed. Holding himself in pain. Behaviors Thought Process: WNL Thought Content: WNL Memory: WNL Insight: WNL SI/HI Risk Assessment Past Suicidal Ideation/Attempts Yes Current Suicidal Ideation/Att Yes (passive) Past Homicidal Ideation/Att: No Current Homicidal Ideation/Attempts No Degree of Intent: Thoughts/No Intent Danger To: Self Risk Factors: age (under 24/over 65), chronic/serious med cond., male Lethality Ratin (mild) PTSD Checklist PTSD Done? patient declined ED Management Sitter: Yes Restraints: No DSM5/PS Stressors/Medical Prob Diagnosis' (DSM 5, Stressors, Medical): Adjustment D/O with depressed mood (F43.21) body aches since d/c pain meds hx of back and knee surgeries Current GAF: 40 Comments: pt was previously seen this morning by Crisis staff. Pt reports passive si due to constant pain since pain medication was discontinued last month. Pt has no reported prior mental health hx. Pt denies intent to harm self but want medication to relieve pain. Departure Disposition Psych Medical Clearance Date: 04/17/16 Medically Cleared at: 2100 Time Started: 2104 Time Ended: 2144 Psychiatrist Consulted: Michelet Hearn MD Date Disposition Established: 04/17/16 Time Disposition Established: 2144 Plan for Disposition - Modality: Refer to pain management clinic Facility: Patient to Arrange Rationale for Disposition: Pt reports body ache and diarhea since abruptly stopping pain management medication last month. Pt contacted pain management clinic this am and has a 3-4 wk wait for an appt. Received 7 day prescription for dilauded pain med by ED provider. Pt son transporting pt home and will have prescription filled in [place]. Referrals BARBARA SULLIVAN,HARDEEP Crooks (PCP/Family)
[2016-04-17] MEDS ORDERED: DILAUDID2 M1 PO (21:48)
== END 2016-04-17 22:26 ==
LOC: ERH 20:06
PROVIDERS: Emergency Medicine
DX: F32.9 Major depressive disorder, single episode, unspecified (principal); F11.23 Opioid dependence with withdrawal; Z76.0 Encounter for issue of repeat prescription
CPT/HCPCS: 80307; G0463; G0480